=== PATIENT | female | born 1985 | race Caucasian/White ===

== ENCOUNTER 2018-08-03 08:49 | Outpatient (CLI) | payer OTHER ==
[~2018-08-03] VITALS: Ht 167.6 cm; Wt 95.9 kg
[2018-08-03 09:20] VITALS: BP 115/65
== END 2018-08-03 10:15 | disposition home or self-care (01) ==
LOC: LDOP 08:49
PROVIDERS: ATTEND Obstetrics & Gynecology Gynecology
DX: O42.92 Full-term premature rupture of membranes, unspecified as to length of time between rupture and onset of labor (principal); Z3A.37 37 weeks gestation of pregnancy
CPT/HCPCS: 59025; 84112; 99201; G0463

== ENCOUNTER 2018-08-14 05:57 | Inpatient (IN) | payer BC, OTHER ==
[~2018-08-14] VITALS: Ht 170.2 cm; Wt 95.0 kg
[2018-08-14] MEDS ORDERED: OXYTOCIN 30U/ 0.9% NaCL 500ML 500 ML IV ONE (06:01)
[2018-08-14] MEDS: D5%-LACTATED RINGERS 1,000 ML IV SCH ×3 (06:01→22:01)
[2018-08-14] MEDS ORDERED: FENTANYL PF 100 MCG/2ML IV PRN (06:30)
[2018-08-14] MEDS ORDERED: METOCLOPRAMIDE 5 MG/ML, 2ML IVPush PRN (06:30)
[2018-08-14] MEDS ORDERED: TERBUTALINE 1 MG/ML, 1ML IVPush PRN ×2 (06:30)
[2018-08-14] MEDS ORDERED: CALCIUM CARBONATE 500 MG TAB.CHEW PO PRN ×2 (06:30→19:00)
[2018-08-14] MEDS ORDERED: PENICILLIN GK 5,000,000 UNITS in DEXTROSE 5% 100 ML IVPB ONE (06:30)
[2018-08-14] MEDS ORDERED: SODIUM CITRATE/CITRIC ACID 30 ML UDC PO PRN (06:30)
[2018-08-14 06:31] LABS: BASOPHILS # (AUTO) 0.09 x10^3/uL (0-0.1); BASOPHILS % (AUTO) 1 % (0-1); EOSINOPHILS # (AUTO) 0.42 x10^3/uL (0-0.4); EOSINOPHILS % (AUTO) 3 % (1-7); LYMPHOCYTES # (AUTO) 2.95 x10^3/uL (1-3.4); LYMPHOCYTES % (AUTO) 20 % (22-44); MD NO; MEAN CORPUSCULAR HEMOGLOBIN 28.5 pg (27.0-34.8); MEAN CORPUSCULAR HGB CONC 33.4 g/dL (32.4-35.8); MEAN CORPUSCULAR VOLUME 85.3 fL (80-100); MEAN PLATELET VOLUME 7.5 fL (7.4-10.4); MONOCYTES # (AUTO) 1.22 x10^3/uL (0.2-0.8); MONOCYTES % (AUTO) 8 % (2-9); NEUTROPHILS # (AUTO) 10.43 x10^3/uL (1.8-6.8); NEUTROPHILS % (AUTO) 69 % (42-75); PLATELET COUNT 379 x10^3/uL (130-400); RED BLOOD COUNT 4.39 x10^6/uL (3.82-5.3); RED CELL DISTRIBUTION WIDTH 14.8 % (9.6-15.2)
[2018-08-14] MEDS ORDERED: LIDOCAINE/PF 1%, 30ML ONE (06:33)
[2018-08-14] MEDS ORDERED: NEWBORN KIT ONE (06:33)
[2018-08-14] MEDS ORDERED: OXYTOCIN 30U/ 0.9% NaCL 500ML 500 ML ONE ×2 (06:34→20:24)
[2018-08-14] MEDS ORDERED: MISOPROSTOL 200 MCG TABLET ONE (06:34)
[2018-08-14] MEDS: LACTATED RINGERS 1,000 ML IV SCH ×3 (06:47→22:01)
[2018-08-14 07:29] VITALS: BP 122/71
[2018-08-14] MEDS: PENICILLIN GK 2,500,000 UNITS in DEXTROSE 5% 100 ML IVPB SCH ×4 (10:30→22:30)
[2018-08-14] MEDS ORDERED: OXYTOCIN 30U/ 0.9% NaCL 500ML 500 ML IV PRN (14:45)
[2018-08-14] MEDS ORDERED: FENTANYL PF 100 MCG/2ML ONE (17:46)
[2018-08-14] MEDS: FENTANYL PF 100 MCG/2ML IVPush PRN (17:51)
[2018-08-14] MEDS ORDERED: IBUPROFEN 600 MG TABLET PO PRN (19:00)
[2018-08-14] MEDS ORDERED: RHOGAM FROM BLOOD BANK 1 NOTE EA IM/IV ONE (19:00)
[2018-08-14] MEDS ORDERED: ONDANSETRON 2MG/ML, 2ML IV PRN (19:00)
[2018-08-14] MEDS ORDERED: MAGNESIUM HYDROXIDE 8%, 30ML UDC PO PRN (19:00)
[2018-08-14] MEDS ORDERED: OXYcodone IR 5MG TABLET PO PRN (19:00)
[2018-08-14] MEDS ORDERED: MEASLES,MUMPS&RUBELLA VACC/PF 0.5 ML SQ-VACC PRN (19:00)
[2018-08-14] MEDS ORDERED: DIPH,PERTUSS(ACELL),TET VAC/PF NC IM-VACC PRN (19:00)
[2018-08-14] MEDS ORDERED: MISOPROSTOL 200 MCG TABLET PR PRN (19:00)
[2018-08-14] MEDS ORDERED: OXYcodone/APAP 5/325MG TABLET PO PRN (19:00)
[2018-08-14] MEDS ORDERED: DOCUSATE 100 MG CAPSULE PO PRN (19:00)
[2018-08-14] MEDS ORDERED: IBUPROFEN 600 MG TABLET ONE (20:21)
[2018-08-14] MEDS: OXYTOCIN 30U/ 0.9% NaCL 500ML 500 ML IV SCH (20:25)
[2018-08-14 21:46] VITALS: BP 115/69
[2018-08-15 02:00] VITALS: BP 111/73
[2018-08-15] MEDS: PENICILLIN GK 2,500,000 UNITS in DEXTROSE 5% 100 ML IVPB SCH ×2 (02:30→06:30)
[2018-08-15] MEDS: FENTANYL PF 100 MCG/2ML IVPush PRN ×3 (04:18→07:30)
[2018-08-15 04:20] VITALS: BP 114/70
[2018-08-15] MEDS: OXYTOCIN 30U/ 0.9% NaCL 500ML 500 ML IV SCH ×2 (04:58→14:58)
[2018-08-15 05:37] LABS: MEAN CORPUSCULAR HEMOGLOBIN 28.1 pg (27.0-34.8); MEAN CORPUSCULAR HGB CONC 33.2 g/dL (32.4-35.8); MEAN CORPUSCULAR VOLUME 84.8 fL (80-100); MEAN PLATELET VOLUME 7.8 fL (7.4-10.4); PLATELET COUNT 329 x10^3/uL (130-400); RED BLOOD COUNT 4.14 x10^6/uL (3.82-5.3); RED CELL DISTRIBUTION WIDTH 14.6 % (9.6-15.2)
[2018-08-15] MEDS: D5%-LACTATED RINGERS 1,000 ML IV SCH (06:01)
[2018-08-15] MEDS: LACTATED RINGERS 1,000 ML IV SCH (06:01)
[2018-08-15 06:32] LABS: BASOPHILS % (AUTO) 1 % (0-1); EOSINOPHILS % (AUTO) 2 % (1-7); LYMPHOCYTES # (AUTO) 3.25 x10^3/uL (1-3.4); LYMPHOCYTES % (AUTO) 18 % (22-44); MD SCAN; MONOCYTES # (AUTO) 1.17 x10^3/uL (0.2-0.8); MONOCYTES % (AUTO) 6 % (2-9); NEUTROPHILS # (AUTO) 13.71 x10^3/uL (1.8-6.8); NEUTROPHILS % (AUTO) 74 % (42-75)
[2018-08-15] MEDS: PRENATAL VIT/IRON/FA 1 EACH TABLET PO SCH (07:45)
[2018-08-15 08:00] VITALS: BP 109/59
[2018-08-15 12:50] VITALS: BP 98/66
[2018-08-15] MEDS ORDERED: IBUPROFEN 600 MG TABLET PO PRN (13:00)
[2018-08-15 16:20] VITALS: BP 110/69
[2018-08-15 19:15] VITALS: BP 110/72
[2018-08-16 07:20] VITALS: BP 111/80
[2018-08-16] MEDS: PRENATAL VIT/IRON/FA 1 EACH TABLET PO SCH (09:00)
[2018-08-16] MEDS ORDERED: IBUP-1222 PO (10:06)
== END 2018-08-16 11:57 | disposition home or self-care (01) | DRG 807 ==
LOC: LDIP 05:57 → 2NW 21:48
PROVIDERS: ADMIT Obstetrics & Gynecology Gynecology; ATTEND Obstetrics & Gynecology Gynecology
PROC: 10E0XZZ Delivery of Products of Conception, External Approach (ICD-10-PCS; principal; 2018-08-14)
PROC: 0KQM0ZZ Repair Perineum Muscle, Open Approach (ICD-10-PCS; 2018-08-14)
PROC: 3E033VJ Introduction of Other Hormone into Peripheral Vein, Percutaneous Approach (ICD-10-PCS; 2018-08-14)
DX: O34.219 Maternal care for unspecified type scar from previous cesarean delivery (principal); Z37.0 Single live birth; O99.824 Streptococcus B carrier state complicating childbirth; Z3A.39 39 weeks gestation of pregnancy; O70.1 Second degree perineal laceration during delivery; Z80.3 Family history of malignant neoplasm of breast; Z82.3 Family history of stroke; Z82.49 Family history of ischemic heart disease and other diseases of the circulatory system; Z87.891 Personal history of nicotine dependence; Z90.49 Acquired absence of other specified parts of digestive tract
CPT/HCPCS: 36415; 82803; 85025; 86850; 86900; G0378; J2540; J3010; J2590; J7120

== ENCOUNTER 2020-07-08 05:36 | Emergency (ER) | payer OTHER ==
[~2020-07-08] VITALS: Ht 170.2 cm; Wt 82.0 kg
[~2020-07-08 05:36] MED LIST: IBUP-1222 PO
[2020-07-08] MEDS ORDERED: ONDANSETRON 2MG/ML, 2ML IVPush ONE (06:00)
[2020-07-08] MEDS ORDERED: GLUCAGON 1 MG IVPush ONE (06:00)
[2020-07-08] MEDS ORDERED: SODIUM CHLORIDE 0.9%, 500ML IVBOLUS ONE (06:00)
[2020-07-08] MEDS ORDERED: GLUCAGON 1 MG ONE (06:16)
[2020-07-08] MEDS ORDERED: ONDANSETRON 2MG/ML, 2ML ONE (06:16)
--- NOTE | 2020-07-08 06:35 | NUR ---
FIRST CONTACT WITH PATIENT, HX OF FB ESOPHOGUS LAST NIGHT HAD STEAK NOW WITH FEELING LIKE STUCK. IV STARTED, IVF INFUSING, MEDS PER ORDER. ON CONT PULSE OX. INSTRUCTED PT NPO. WILL CONTINUE TO MONITOR. AIDET PROVIDED.
--- NOTE | 2020-07-08 06:45 | NUR ---
Report received from SHUKRI Lee
--- NOTE | 2020-07-08 07:18 | NUR ---
PT RESTING ON BED WITH CELL PHONE IN HAND. PT STATES SHE FEELS THE SAME BEFORE, NO CHANGES. ALL NEEDS MET AT THIS TIME. AWAITING ENDOSCOPY.
--- NOTE | 2020-07-08 07:46 | NUR ---
PT BACK FROM ATTEMPTED XRAY WITH CONTRAST. PT UNABLE TO GET ANY CONTRAST PAST THE BLOCKAGE. PT STATES SHE IS UNABLE TO SWALLOW HER SALIVA WELL AND IS SPITTING IT UP. PT BACK IN ROOM AND RESTING COMFORTABLY.
[2020-07-08] MEDS ORDERED: OMNIPAQUE 350 MG/ML, 150 ML BOTTLE ONE (07:58)
[2020-07-08] MEDS ORDERED: FENTANYL PF 100 MCG/2ML ONE (08:55)
[2020-07-08] MEDS ORDERED: MIDAZOLAM 1 MG/ML, 5ML ONE (08:56)
[2020-07-08] MEDS ORDERED: PROPOFOL 10 MG/ML, 20ML ONE ×2 (09:19→09:34)
--- NOTE | 2020-07-08 09:26 | NUR ---
ENDO STAFF AND MD AT BEDSIDE SETTING UP FOR EGD. DR LARA GIVING PROPOFOL.
--- NOTE | 2020-07-08 09:43 | NUR ---
PROCEDURE COMPLETED, ENDO REMOVED FBO AND BIOPSY DONE. PT RECOVERING AFTER PROPOFOL ADMINISTRATION. PT RESPONSIVE AND ENGAGING WITH ENDO AND ER STAFF. SEE PROCEDURAL SEDATION PAPERWORK.
[2020-07-08 10:02] VITALS: BP 109/74
--- NOTE | 2020-07-08 10:02 | NUR ---
PT TALKING ON PHONE, NO DISTRESS. ABLE TO SWALLOW SECRETIONS
--- NOTE | 2020-07-08 10:39 | NUR ---
PT RECEIVED DISCHARGE INSTRUCTIONS AND EDUCATION PERFORMED. PT HAD NO QUESTIONS REGARDING THE INSTRUCTIONS. PT AMBULATED TO DC DESK, STEADY GAIT.
== END 2020-07-08 10:43 | disposition home or self-care (01) ==
LOC: ED 06:54
DX: T18.128A Food in esophagus causing other injury, initial encounter (principal); X58.XXXA Exposure to other specified factors, initial encounter; Y93.89 Activity, other specified; Y92.89 Other specified places as the place of occurrence of the external cause; Y99.8 Other external cause status
CPT/HCPCS: 43247; 74220; 88305; 96361; 96374; 96375; 99152; 99285; J1610; J2405; J7040; Q9967; J2250; J3010